=== PATIENT | female | born 1990 | race Hispanic/Latino ===

== ENCOUNTER 2018-08-28 19:21 | Emergency (ER) | payer OTHER ==
[~2018-08-28 19:21] MED LIST: ALPR1TAB7 PO; AZAT50TA PO; HYDR-4453 PO; LEVO25TA9 PO; LIDOP TP; MOXIOS OU; ZOLP10TA2 PO
[2018-08-28 20:17] LABS: BASOPHILS % (AUTO) 0.5 % (0.0-5.0); EOSINOPHILS % (AUTO) 2.2 % (0.0-8.0); LYMPHOCYTES % (AUTO) 49.5 % (21.0-51.0); MEAN CORPUSCULAR HEMOGLOBIN 31.3 pg (27.0-33.0); MEAN CORPUSCULAR HGB CONC 34.2 g/dL (32.0-36.0); MEAN CORPUSCULAR VOLUME 91.4 fL (79-99); MONOCYTES % (AUTO) 8.9 % (3.0-13.0); NEUTROPHILS % (AUTO) 38.9 % (40.0-77.0); PLATELET COUNT (AUTO) 357 K/uL (130-400); RED CELL DISTRIBUTION WIDTH 13.2 % (11.0-15.5); WHITE BLOOD COUNT (AUTO) 5.4 K/uL (4.8-10.8)
[2018-08-28 20:53] LABS: CREATININE 0.6 mg/dL (0.5-1.5); POTASSIUM 3.7 mmol/L (3.5-5.1)
[2018-08-28 21:01] LABS: ALBUMIN 3.2 g/dL (3.5-5.0); BILIRUBIN,TOTAL 0.1 mg/dL (0.2-1.0); CRP QUANTITATIVE 31.3 mg/L (0.00-9.0)
[2018-08-28 21:05] LABS: APPEARANCE,URINE Cloudy (CLEAR); BILIRUBIN,URINE Negative (NEGATIVE); COLOR,URINE Yellow (YELLOW); GLUCOSE, URINE (UA) Negative (NEGATIVE); KETONES,URINE Negative (NEGATIVE); LEUKOCYTE ESTERASE ,URINE Negative (NEGATIVE); NITRATE,URINE Negative (NEGATIVE); OCCULT BLOOD,URINE Negative (NEGATIVE); PROTEIN,URINE Negative (NEGATIVE)
[2018-08-28] MEDS ORDERED: ONDANSETRON HCL 4 MG/2 ML VIAL ONE (21:05)
[2018-08-28 21:10] LABS: HCG,QUAL RESULT NEGATIVE (NEGATIVE)
[2018-08-28 21:12] LABS: BACTERIA,URINE Few /HPF (None Seen); RBC,URINE 0-1 /HPF (0-1); SQUAMOUS EPITHELIAL CELL,UR Moderate /HPF (0-2); WBC,URINE 0-1 /HPF (0-1)
[2018-08-28 21:13] LABS: AMORPHOUS SEDIMENT,UR Few /LPF (None Seen)
[2018-08-28 21:25] LABS: ERYTHROCYTE SEDIMENTATION RATE 45 MM/HR (0-20)
[2018-08-28 21:26] LABS: AMPHET/METH SCREEN,URINE NEGATIVE (NEGATIVE); BARBITURATE SCREEN, URINE NEGATIVE (NEGATIVE); BENZODIAZEPINES SCREEN,URINE POSITIVE (NEGATIVE); CANNABINOID SCREEN,URINE NEGATIVE (NEGATIVE); COCAINE SCREEN,URINE NEGATIVE (NEGATIVE); OPIATE SCREEN,URINE NEGATIVE (NEGATIVE); PHENCYCLIDINE SCREEN,URINE NEGATIVE (NEGATIVE)
[2018-08-28] MEDS ORDERED: TRAMADOL HCL 50 MG TABLET ONE (22:05)
== END 2018-08-28 22:25 | disposition home or self-care (01) ==
LOC: EDH 19:21
DX: M87.851 Other osteonecrosis, right femur (principal); R11.2 Nausea with vomiting, unspecified; K50.90 Crohn's disease, unspecified, without complications; Z88.0 Allergy status to penicillin; Z88.1 Allergy status to other antibiotic agents; Z91.040 Latex allergy status; Z88.8 Allergy status to other drugs, medicaments and biological substances; Z98.890 Other specified postprocedural states
CPT/HCPCS: 36415; 72192; 80053; 80305; 81001; 81025; 82550; 84484; 84702; 85025; 85651; 86140; 93005; 96374; 96376; 99285; J2405

== ENCOUNTER 2020-07-05 14:04 | Emergency (ER) | payer MEDICAID, OTHER ==
[2020-07-05] MEDS ORDERED: SODIUM CHLORIDE 0.9% 1000ML 1,000 ML IV ONE (14:05)
[2020-07-05] MEDS ORDERED: MORPHINE SULFATE 4 MG/1ML SYG ONE (14:49)
[2020-07-05] MEDS ORDERED: ONDANSETRON HCL 4 MG/2 ML VIAL ONE (14:49)
[2020-07-05] MEDS ORDERED: DiphenhydrAMINE HCL 50 MG/ML VIAL ONE (14:54)
[2020-07-05 15:06] LABS: BASOPHILS % (AUTO) 0.1 % (0.0-5.0); EOSINOPHILS % (AUTO) 0.3 % (0.0-8.0); HEMATOCRIT 38.3 % (36-48); MEAN CORPUSCULAR HEMOGLOBIN 31.2 pg (27.0-33.0); MEAN CORPUSCULAR HGB CONC 33.9 g/dL (32.0-36.0); MEAN CORPUSCULAR VOLUME 91.8 fL (79-99); MONOCYTES % (AUTO) 8.7 % (3.0-13.0); NEUTROPHILS % (AUTO) 64.6 % (40.0-77.0); PLATELET COUNT (AUTO) 427 K/uL (130-400); RED BLOOD CELL COUNT(AUTO) 4.17 MIL/uL (4.00-5.50); WHITE BLOOD COUNT (AUTO) 7.5 K/uL (4.8-10.8)
[2020-07-05 15:19] LABS: INR 0.92 (0.85-1.15); PARTIAL THROMBOPLASTIN TIME 26.3 SEC (26.3-35.5)
[2020-07-05 15:29] LABS: CREATININE 0.7 mg/dL (0.5-1.5); POTASSIUM 3.3 mmol/L (3.5-5.1)
[2020-07-05 15:34] LABS: ALBUMIN 4.3 g/dL (3.5-5.0); BILIRUBIN,TOTAL 0.5 mg/dL (0.2-1.0); CRP QUANTITATIVE 2.6 mg/L (0.00-9.0); TOTAL PROTEIN, SERUM 8.4 g/dL (6.0-8.3)
[2020-07-05] MEDS ORDERED: FENTANYL 25 MCG/HR PATCH TD ONE (15:50)
[2020-07-05 16:19] LABS: ERYTHROCYTE SEDIMENTATION RATE 16 MM/HR (0-20)
== END 2020-07-05 16:01 | disposition home or self-care (01) ==
LOC: EDH 14:04
DX: G89.29 Other chronic pain (principal); M25.552 Pain in left hip; M25.551 Pain in right hip; Z20.828 Contact with and (suspected) exposure to other viral communicable diseases; Z72.0 Tobacco use; Z88.0 Allergy status to penicillin; Z88.5 Allergy status to narcotic agent; Z91.041 Radiographic dye allergy status; Z88.1 Allergy status to other antibiotic agents; Z88.8 Allergy status to other drugs, medicaments and biological substances; Z88.6 Allergy status to analgesic agent
CPT/HCPCS: 36415; 80053; 83605; 84484; 84702; 85025; 85610; 85651; 85730; 86140; 87040 ×2; 87426; 93005; 96374; 96375; 99284; J1200; J2270; J2405; J7030

== ENCOUNTER → 2021-03-12 | Outpatient (CLI) | payer MEDICAID | END | disposition home or self-care (01) | LOC: OIH 13:22 | PROVIDERS: ATTEND Internal Medicine | DX: M25.78 Osteophyte, vertebrae (principal); M25.551 Pain in right hip; M87.051 Idiopathic aseptic necrosis of right femur; M54.16 Radiculopathy, lumbar region; M54.2 Cervicalgia | CPT/HCPCS: 72040; 72110; 73502 ==

== ENCOUNTER 2022-07-13 02:23 | Emergency (ER) | payer MEDICAID ==
[~2022-07-13] VITALS: Ht 160 cm; Wt 61.2 kg
[2022-07-13 02:24] VITALS: BP 114/57
== END 2022-07-13 04:35 | disposition left against medical advice (07) ==
LOC: EDH 02:23
DX: M25.551 Pain in right hip (principal); R11.0 Nausea; M32.9 Systemic lupus erythematosus, unspecified; F41.9 Anxiety disorder, unspecified; F17.200 Nicotine dependence, unspecified, uncomplicated; Z88.0 Allergy status to penicillin; Z88.1 Allergy status to other antibiotic agents; Z88.6 Allergy status to analgesic agent
CPT/HCPCS: 99281

== ENCOUNTER 2022-11-06 13:16 | Emergency (ER) | payer MEDICAID ==
[~2022-11-06] VITALS: Ht 157.5 cm; Wt 61.2 kg
[2022-11-06 14:34] LABS: BASOPHILS % (AUTO) 0.3 % (0.0-5.0); LYMPHOCYTES % (AUTO) 27.8 % (21.0-51.0); MEAN CORPUSCULAR HEMOGLOBIN 30.2 pg (27.0-33.0); MEAN CORPUSCULAR HGB CONC 33.5 g/dL (32.0-36.0); MEAN CORPUSCULAR VOLUME 90.2 fL (79-99); MONOCYTES % (AUTO) 9.4 % (3.0-13.0); NEUTROPHILS % (AUTO) 58.9 % (40.0-77.0); PLATELET COUNT (AUTO) 416 K/uL (130-400); RED BLOOD CELL COUNT(AUTO) 3.77 MIL/uL (4.00-5.50); RED CELL DISTRIBUTION WIDTH 13.7 % (11.0-15.5); WHITE BLOOD COUNT (AUTO) 10.9 K/uL (4.8-10.8)
[2022-11-06 14:49] LABS: ALBUMIN 3.7 g/dL (3.5-5.0); CREATININE 0.8 mg/dL (0.5-1.5); TOTAL PROTEIN, SERUM 7.7 g/dL (6.0-8.3)
[2022-11-06 15:11] LABS: POTASSIUM 2.7 mmol/L (3.5-5.1)
[2022-11-06] MEDS ORDERED: MORPHINE 8MG VIAL IVP ONE (17:00)
[2022-11-06] MEDS ORDERED: 0.9%NACL 1000ML 1,000 ML IV ONE (17:00)
[2022-11-06] MEDS ORDERED: PROMETHAZINE HCL 25 MG/ML 1ML AMPULE IM ONE (17:00)
[2022-11-06 17:03] LABS: APPEARANCE,URINE CLEAR (CLEAR); BILIRUBIN,URINE NEGATIVE (NEGATIVE); COLOR,URINE YELLOW (YELLOW); GLUCOSE, URINE (UA) NEGATIVE (NEGATIVE); KETONES,URINE NEGATIVE (NEGATIVE); LEUKOCYTE ESTERASE ,URINE NEGATIVE Leu/uL (NEGATIVE); NITRATE,URINE NEGATIVE (NEGATIVE); OCCULT BLOOD,URINE NEGATIVE (NEGATIVE); PH,URINE 7.5 (5.0-8.0); PROTEIN,URINE NEGATIVE (NEGATIVE); UROBILINOGEN,URINE 0.2 mg/dL (0.2-1.0)
[2022-11-06] MEDS: MORPHINE 4 MG SYG ONE ×2 (17:03→17:10)
[2022-11-06] MEDS ORDERED: POTASSIUM BICARB/CIT AC 25 MEQ TABLET.EFF PO ONE (18:30)
[2022-11-06] MEDS ORDERED: HYDROMORPHONE 1 MG INJ IVP ONE (18:30)
[2022-11-06] MEDS ORDERED: PROM25TA7 PO (18:43)
[2022-11-06] MEDS ORDERED: PROM25SU58 RC (18:43)
[2022-11-06 19:00] VITALS: BP 142/88
== END 2022-11-06 19:01 | disposition home or self-care (01) ==
LOC: EDH 13:16
DX: S09.90XD Unspecified injury of head, subsequent encounter (principal); E86.9 Volume depletion, unspecified; E87.6 Hypokalemia; R11.2 Nausea with vomiting, unspecified; G89.29 Other chronic pain; F41.9 Anxiety disorder, unspecified; F17.200 Nicotine dependence, unspecified, uncomplicated; Z20.822 Contact with and (suspected) exposure to COVID-19; Z88.0 Allergy status to penicillin; Z88.1 Allergy status to other antibiotic agents; Z88.6 Allergy status to analgesic agent; Z79.899 Other long term (current) drug therapy; Z98.890 Other specified postprocedural states; Z91.040 Latex allergy status; W19.XXXA Unspecified fall, initial encounter; Y93.89 Activity, other specified; Y92.89 Other specified places as the place of occurrence of the external cause; Y99.8 Other external cause status
CPT/HCPCS: 99285; 96374; 70450; 87635; 96361; 96375; 80053; 85025; 87804 ×2; 81003; 81025; 36415; 96372; C9803; J2270 ×2; J1170; J7030; J2550

== ENCOUNTER 2022-11-18 17:52 | Emergency (ER) | payer MEDICAID ==
[~2022-11-18] VITALS: Ht 157.5 cm; Wt 61.2 kg
[~2022-11-18 17:52] MED LIST changes: +PROM25SU58 RC; +PROM25TA7 PO
[2022-11-18] MEDS ORDERED: ACETAMINOPHEN 500 MG TABLET PO ONE (19:30)
[2022-11-18] MEDS ORDERED: ONDANSETRON 4MG INJ ONE (19:41)
[2022-11-18 19:48] LABS: BASOPHILS % (AUTO) 0.6 % (0.0-5.0); EOSINOPHILS % (AUTO) 1.6 % (0.0-8.0); HEMATOCRIT 40.7 % (36-48); LYMPHOCYTES % (AUTO) 41.1 % (21.0-51.0); MEAN CORPUSCULAR HEMOGLOBIN 30.7 pg (27.0-33.0); MEAN CORPUSCULAR HGB CONC 33.4 g/dL (32.0-36.0); MEAN CORPUSCULAR VOLUME 91.9 fL (79-99); MONOCYTES % (AUTO) 13.8 % (3.0-13.0); NEUTROPHILS % (AUTO) 42.5 % (40.0-77.0); PLATELET COUNT (AUTO) 523 K/uL (130-400); RED BLOOD CELL COUNT(AUTO) 4.43 MIL/uL (4.00-5.50)
[2022-11-18 19:49] LABS: APPEARANCE,URINE CLOUDY (CLEAR); BILIRUBIN,URINE NEGATIVE (NEGATIVE); COLOR,URINE YELLOW (YELLOW); GLUCOSE, URINE (UA) NEGATIVE (NEGATIVE); KETONES,URINE 5 mg/dL (NEGATIVE); LEUKOCYTE ESTERASE ,URINE NEGATIVE Leu/uL (NEGATIVE); NITRATE,URINE NEGATIVE (NEGATIVE); OCCULT BLOOD,URINE SMALL (NEGATIVE); PROTEIN,URINE 30 mg/dL (NEGATIVE); UROBILINOGEN,URINE 0.2 mg/dL (0.2-1.0)
[2022-11-18 19:52] LABS: HCG,QUALITATIVE URINE NEGATIVE (NEGATIVE)
[2022-11-18 20:00] LABS: BACTERIA,URINE RARE /HPF (None Seen); MUCUS,URINE RARE LPF (None Seen); SQUAMOUS EPITHELIAL CELL,UR FEW /HPF (0-2)
[2022-11-18 20:08] LABS: CREATININE 0.8 mg/dL (0.5-1.5); POTASSIUM 3.5 mmol/L (3.5-5.1)
[2022-11-18 20:12] LABS: TOTAL PROTEIN, SERUM 8.8 g/dL (6.0-8.3)
[2022-11-18 22:21] VITALS: BP 118/60
[2022-11-18] MEDS ORDERED: HYDROCODONE/ACETAMINOPHEN 10/325 MG TAB PO ONE (22:30)
== END 2022-11-18 22:28 | disposition home or self-care (01) ==
LOC: EDH 17:52
DX: S09.90XA Unspecified injury of head, initial encounter (principal); R10.9 Unspecified abdominal pain; R74.8 Abnormal levels of other serum enzymes; F41.9 Anxiety disorder, unspecified; M19.90 Unspecified osteoarthritis, unspecified site; F17.200 Nicotine dependence, unspecified, uncomplicated; Z88.8 Allergy status to other drugs, medicaments and biological substances; Z88.6 Allergy status to analgesic agent; Z88.1 Allergy status to other antibiotic agents; Z88.0 Allergy status to penicillin; Z79.899 Other long term (current) drug therapy; W18.30XA Fall on same level, unspecified, initial encounter; Y93.89 Activity, other specified; Y92.89 Other specified places as the place of occurrence of the external cause; Y99.8 Other external cause status
CPT/HCPCS: 99284; 70450; 96365; 80053; 85025; 81001; 81025; 36415; 72125; 74176; J2405

== ENCOUNTER 2025-02-10 00:40 | Emergency (ER) | payer MEDICAID ==
[~2025-02-10] VITALS: Ht 160 cm; Wt 50.8 kg
[~2025-02-10 00:40] MED LIST changes: +ZOLP-685 PO; -ZOLP10TA2 PO
--- NOTE | 2025-02-10 00:44 | NUR ---
MARI PCT AWARE OF NEED FOR EKG
--- NOTE | 2025-02-10 00:51 | EKG ---
[facility] Test Date: 2025-02-10 Test Time: 00:48:28 Pat Name: ALHAJI RIVERO Department: [facility] Room: Gender: F Monitoring Specialist: [id number] : 1990 Requested By: EUSEBIA TEJADA Order Number: [id number] Reading MD: Alix Dahl Measurements Intervals Mallie Rate: 78 P: 28 MN: 144 QRS: 64 QRSD: 92 T: 21 QT: 373 QTc: 426 Interpretive Statements Sinus rhythm Compared to ECG 07/05/2020 14:11:58 Sinus tachycardia no longer present Electronically Signed On 02-11-2025 12:37:27 CDT by Alix Dahl Please click the below link to view image of tracing.
--- NOTE | 2025-02-10 00:52 | NUR ---
WILL NOT FIT IN TEXT PORTION OF TRIAGE DUE TO SPACE. PMH ULCERATIVE COLITIS
--- NOTE | 2025-02-10 01:18 | ERN ---
ED Note History of Present Illness Stated Complaint: CHEST PAIN Chief Complaint: Chest Pain Time Seen by : 00:44 Time Seen by Midlevel: 00:44 Dictation: The patient is a 34-year-old female with history of arthritis, anxiety, ulcerative colitis who presents to the emergency department with complaints of chest pain onset October of 2024. Patient reports it develop chest pain after she was diagnosed with COVID. Reports occasional palpitations. Patient reports she was seen in Dr. Uribe's office yesterday and had an EKG performed and was told the symptoms were due to her history of COVID. Allergies: Coded Allergies: enoxaparin (Unverified Allergy, Severe, UNKNOWN, 05/19/15) PT STATES THAT WITH LOVENOX . SHE STARTS TO VOMIT BLOOD AND IS A FAMILY OF THE NSAIDS . SHE HAS TAKEN THIS MEDICATION SO SHE IS ALLERGY , TO THIS MEDICATION . NONE GIVEN TO HER TODAY CREDIT vancomycin (Unverified Allergy, Severe, ITCHING, 06/05/15) BURING ITCHING AND MILD RASH , LOWER AREA OF ABD ,BACK AND ARMS NSAIDS (Non-Steroidal Anti-Inflamma (Verified Allergy, Unknown, 05/13/15) Penicillins (Verified Allergy, Unknown, 05/13/15) amoxicillin (Verified Allergy, Unknown, 05/13/15) ketorolac (Unverified Allergy, Unknown, 01/17/22) latex (Verified Allergy, Unknown, 05/13/15) Home Meds Active Scripts Promethazine HCl (Promethazine HCl) 25 Mg Tablet, 25 MG PO TIDP PRN for NAUSEA/VOMITING, #12 TAB 0 Refills Prov:NICK DOUGLAS MD 11/06/22 Promethazine HCl (Promethazine HCl) 25 Mg Supp.rect, 25 MG RC TIDP PRN for NAUSEA/VOMITING, #12 EA 0 Refills Prov:NICK DOUGLAS MD 11/06/22 Reported Medications Alprazolam (Alprazolam) 1 Mg Tablet, 1 MG PO [id number] PRN for ANXIETY, TAB 06/10/17 Moxifloxacin HCl (Vigamox 0.5% Ophth Soln) 20 Drop/Ml Opsol, 1 DROP OU DAILY PRN for OTHER [SEE ORDER COMMENTS], DROP 06/10/17 Zolpidem Tartrate (Ambien) 10 Mg Tablet, 10 MG PO HS, TAB 05/29/15 Lidocaine (Lidoderm Patch 5%) 1 Patch Patch, 1 PATCH TP DAILY PRN for PAIN, ADH.PATCH 05/13/15 Azathioprine (Azathioprine) 50 Mg Tablet, 50 MG PO BID, TAB 05/13/15 Levothyroxine Sodium (Synthroid 25 Mcg Tab) 25 Mcg Tablet, 25 MCG PO ACBKFST, TAB 05/13/15 Hydrocodone/Acetaminophen ([place] 10-325 Tablet) 1 Each Tablet, 1 EACH PO QID PRN for PAIN, TAB 05/13/15 Past Medical History Past Medical History: Anxiety, Arthritis, Hypothyroid Additional Past Medical Hx: ANKLOSING SPONDYLITIS, LUPUS, CROHNS, AVASCULAR NECROSIS, OSTEO MYELITIS, Surgical History: Other Surgical History Other: RT HIP, SEPTOPLASTY Social History: Smokers, Lives with family, Other RN Note Reviewed/Agreed w/PFSH: Yes Review of System Dictation Constitutional: Negative for fever,chills, and weight loss Eyes: Negative for injury, pain,redness, and discharge ENT: Negative for injury,pain or swelling Cardiovascular: Negative for and edema positive for chest pain, palpitation Respiratory: Negative for shortness of breath, cough, and wheezing, Abdomen/GI: Negative for abdominal pain, nausea, vomiting, diarrhea, and constipation Back: Negative for injury and pain : Negative for injury, bleeding and discharge MS/Extremity: Negative for injury and deformity Skin: Negative for rash, and discoloration Neuro: Negative for headache, weakness, numbness, tingling, and seizure Psych: Negative for suicide ideation, homicidal ideation, and hallucinations Initial Vital Sign VS Vital Signs Date Time Temp Pulse Resp B/P (MAP) Pulse Ox O2 Delivery O2 Flow Rate FiO2 02/10/25 00:42 97.9 97 16 95/64 100 Room Air 02/10/25 01:39 0 21 Physical Exam Dictation Vital Signs reviewed General Appearance: Alert, oriented x 3, no acute distress, well developed, nourished. Head and Face: non-traumatic. Eyes: PERRL, pink conjunctivas, eyelid no trauma, anterior chamber with arcus senilis. Ears: Pinnas intact and no signs of trauma or erythema ear canals clear and no discharge TM no erythema Nose: No discharge, no bleeding. Oropharynx: Mouth normal, tongue pink. pharynx clear,no erythema, tonsils no exudates, no abscesses noted, mucous membrane moist Neck: Supple, non-tender, no thyromegaly, no masses, no JVD, no bruits Breast:Deferred Chest:No tenderness, no crepitus, no paradoxical movement, no retractions Lungs:Clear, well-ventilated, symmetric, no rales, no wheezing, no rhonchi, no stridor, good breath sounds bilaterally Heart: Regular rate, regular rhythm, no murmur, no gallops Vascular: no peripheral edema, Abdomen: Soft, positive bowel sounds, nondistended, no guarding, nontender, no rebound, no masses no hepatomegaly, no splenomegaly, no Márquez's sign, no hernias. Rectal: Deferred Genital: Deferred Neurological: Normal speech, motor function intact, sensory function intact Musculoskeletal: Neck nontender, full range of motion, back nontender, full ra nge of motion, Extremities: nontender, full range of motion Skin: Color pink, dry, no turgor, no rash, no lacerations, no abrasions, no contusions. Lymphatic: Deferred Results (Laboratory/Radiology) Laboratory/Radiology Laboratory Tests Test 02/10/25 02:18 White Blood Count 8.6 K/uL (4.8-10.8) Red Blood Count 4.05 MIL/uL (4.00-5.50) Hemoglobin 12.6 g/dL (12.0-16.0) Hematocrit 37.6 % (36-48) Mean Corpuscular Volume 92.8 fL (79-99) Mean Corpuscular Hemoglobin 31.1 pg (27.0-33.0) Mean Corpuscular Hemoglobin Concent 33.5 g/dL (32.0-36.0) Red Cell Distribution Width 14.1 % (11.0-15.5) Platelet Count 362 K/uL (130-400) Mean Platelet Volume 9.8 fL (7.5-10.5) Immature Granulocyte % (Auto) 0.3 % (0-1) Neutrophils (%) (Auto) 65.6 % (40.0-77.0) Lymphocytes (%) (Auto) 24.6 % (21.0-51.0) Monocytes (%) (Auto) 8.8 % (3.0-13.0) Eosinophils (%) (Auto) 0.5 % (0.0-8.0) Basophils (%) (Auto) 0.2 % (0.0-5.0) Neutrophils # (Auto) 5.6 K/uL (1.8-7.7) Lymphocytes # (Auto) 2.1 K/uL (1.0-4.8) Monocytes # (Auto) 0.8 K/uL (0.1-1.0) Eosinophils # (Auto) 0.04 K/uL (0.00-0.70) Basophils # (Auto) 0.02 K/uL (0.00-0.20) Absolute Immature Granulocyte (auto 0.03 K/uL (0-1) Nucleated Red Blood Cells 0.0 % (0.0-0.19) Sodium Level 141 mmol/L (136-145) Potassium Level 3.8 mmol/L (3.5-5.1) Chloride Level 104 mmol/L (101-111) Carbon Dioxide Level 24 mmol/L (21-32) Blood Urea Nitrogen 20 mg/dL (7-18) H Creatinine 0.8 mg/dL (0.5-1.0) Glomerular Filtration Rate Calc 100 mL/min (>90) Random Glucose 71 mg/dL (70-105) Total Calcium 9.7 mg/dL (8.5-10.1) Magnesium Level 1.80 mg/dL (1.80-2.40) Total Creatine Kinase 50 U/L (21-232) # Troponin I High Sensitivity < 4 ng/L (4-50) L B-Type Natriuretic Peptide < 5 pg/mL (0-100) Lipase 11 U/L (16-77) L Labs Reviewed?: Yes EKG: (+) rhythm (Sinus rhythm) EKG Comment: Date:02/10/2025 Time:47 Ventricular rate:78 VT interval:144 QRS duration:92 QT/QTc:373 EKG interpretation: Sinus rhythm Reviewed by ED Attending STEMI ED Course ED Course Orders Procedure Category Date Status Time Vital Signs Per CPOE 02/10/25 Transmitted Routine 00:43 B-Type Natriuretic LAB 02/10/25 Complete Peptide 00:43 Chest 1vw RAD 02/10/25 Taken 00:43 12 Lead Ekg Tracing- EKG 02/10/25 Complete Technical 00:43 Oxygen By Nc/Pulse Ox CPOE 02/10/25 Transmitted 00:43 Maintain Iv CPOE 02/10/25 Transmitted 00:43 Iv Insertion CPOE 02/10/25 Transmitted 00:43 Cardiac Monitoring CPOE 02/10/25 Transmitted 00:43 Pulse Oximetry With CPOE 02/10/25 Transmitted Vs And Prn 00:43 Cbc With Differential LAB 02/10/25 Complete 00:43 Activity: Br W/Brp CPOE 02/10/25 Transmitted With Assist 00:43 Creatine Kinase, Total LAB 02/10/25 Complete 00:43 Troponin I High LAB 02/10/25 Complete Sensitivity 00:43 Urinalysis Profile LAB 02/10/25 Logged 00:43 Basic Metabolic Panel LAB 02/10/25 Complete 00:43 Testing, LAB 02/10/25 Logged Serum Hcg 00:45 Ondansetron 4mg Inj PHA 02/10/25 Complete (Zofran 4mg Inj) 01:30 Pantoprazole 40mg Inj PHA 02/10/25 Complete (Protonix 40mg Inj 01:30 Acetaminophen 500mg PHA 02/10/25 Complete Tab (Tylenol 500mg T 01:30 Drug Screen Urine LAB 02/10/25 Logged 01:05 Lipase LAB 02/10/25 Complete 00:43 Magnesium LAB 02/10/25 Complete 00:43 Metoclopramide 10 Mg PHA 02/10/25 Complete Tablet (Reglan 10 M 02:30 Mag/Alum/Simeth 30ml PHA 02/10/25 Complete (Maalox Plus 30ml) 02:30 Current Medications Medications (Trade) Dose Ordered Sig/Sarah Route PRN Reason Start Time Stop Time Status Last Admin Dose Admin Acetaminophen (TYLenol 500MG TAB) 1,000 mg ONCE ONCE PO 02/10/25 01:30 02/10/25 02:28 DC Al Hydroxide/Mg Hydroxide (MAALox PLUS 30ML) 30 ml ONCE ONCE PO 02/10/25 02:30 02/10/25 02:31 DC Metoclopramide HCl (regLAN 10 MG TAB) 10 mg ONCE ONCE PO 02/10/25 02:30 02/10/25 02:31 DC Ondansetron HCl (zoFRAN 4MG INJ) 4 mg ONCE ONCE IVP 02/10/25 01:30 02/10/25 02:28 DC Pantoprazole Sodium (PROTonix 40MG INJ) 40 mg ONCE ONCE IVP 02/10/25 01:30 02/10/25 02:28 DC Vital Signs Date Time Temp Pulse Resp B/P (MAP) Pulse Ox O2 Delivery O2 Flow Rate FiO2 02/10/25 03:42 83 17 100/68 98 Room Air* 0 21 02/10/25 01:39 98.1 80 16 104/70 100 Room Air* 0 21 02/10/25 00:42 97.9 97 16 95/64 100 Room Air HEART Score Response (Comments) Value History: Low suspicion (0) 0 EKG: Normal 0 Age: < 45yrs (0) 0 Risk Factors: 1-2 risk factors (+1) 1 Initial Troponin: Normal limit (0) 0 Total 1 Medical Decision Making MDM The patient is a 34-year-old female with history of arthritis, anxiety, ulcerative colitis who presents to the emergency department with complaints of chest pain onset October of 2024. Patient reports it develop chest pain after she was diagnosed with COVID. Reports occasional palpitations. Patient reports she was seen in Dr. Uribe's office yesterday and had an EKG performed and was told the symptoms were due to her history of COVID. CBC showed no leukocytosis, no anemia, chemistry showed no electrolyte imbalance, negative troponin, EKG shows sinus rhythm. Patient with chest pain since October of 2024. Patient requesting Dilaudid. Patient in no acute distress. No risk for any cardiac etiology. Patient will be discharged to follow up PCP. Differential diagnosis: ACS, pneumonia, tachyarrhythmia, electrolyte imbalance, dehydration Need for hospitalization: Patient does not meet criteria for hospitalization. There are no social concerns with this patient. The patient's laboratory values with her. Explaining that they are normal that she has no problems with her heart that we can see her EKGs normal ruling out pericarditis her BNP is normal ruling out CHF her troponins are negative ruling out ischemia. I explained to her that I do not doubt she has chest pain, I just can not fix it now beyond providing symptomatic relief with the pain medications which would be Tylenol or ibuprofen. I tried to make it clear that our job in the emergency room if simply to rule out causes that in danger of patient's life and that her chest pain while real is not coming from her heart in his not life-threatening. It is possible that her chest pain could be from anxiety or hyperventilation syndrome or plain old dehydration. Unfortunately we have not been able to obtain an IV in the patient despite using the vein find her and therefore have not been able to fix any potential hypovolemia. The patient left the hospital discussed it with me. DX & DISP Disposition: Discharge Departure Impression: Primary Impression: Volume depletion Condition: Stable Referrals: SHAUNA KEATING MD (PCP) FATIMAH COFFMAN Feb 10, 2025 01:18 EUSEBIA TEJADA MD Feb 10, 2025 03:47
[2025-02-10] MEDS ORDERED: PANTOPrazole 40 MG/VIAL IVP ONE (01:30)
[2025-02-10] MEDS ORDERED: ondanSETRON 4MG INJ IVP ONE (01:30)
[2025-02-10] MEDS ORDERED: acetaMINOPHEN 500 MG TABLET PO ONE (01:30)
[2025-02-10 01:39] VITALS: TEMP 98
[2025-02-10 02:28] LABS: BASOPHILS # (AUTO) 0.02 K/uL (0.00-0.20); BASOPHILS % (AUTO) 0.2 % (0.0-5.0); EOSINOPHILS # (AUTO) 0.04 K/uL (0.00-0.70); EOSINOPHILS % (AUTO) 0.5 % (0.0-8.0); HEMATOCRIT 37.6 % (36-48); IMMATURE GRANULOCYTE ABSOLUTE 0.03 K/uL (0-1); LYMPHOCYTES # (AUTO) 2.1 K/uL (1.0-4.8); LYMPHOCYTES % (AUTO) 24.6 % (21.0-51.0); MEAN CORPUSCULAR HEMOGLOBIN 31.1 pg (27.0-33.0); MEAN CORPUSCULAR HGB CONC 33.5 g/dL (32.0-36.0); MEAN CORPUSCULAR VOLUME 92.8 fL (79-99); MONOCYTES # (AUTO) 0.8 K/uL (0.1-1.0); MONOCYTES % (AUTO) 8.8 % (3.0-13.0); NEUTROPHILS # (AUTO) 5.6 K/uL (1.8-7.7); NEUTROPHILS % (AUTO) 65.6 % (40.0-77.0); PLATELET COUNT (AUTO) 362 K/uL (130-400); RED BLOOD CELL COUNT(AUTO) 4.05 MIL/uL (4.00-5.50); RED CELL DISTRIBUTION WIDTH 14.1 % (11.0-15.5); WHITE BLOOD COUNT (AUTO) 8.6 K/uL (4.8-10.8)
[2025-02-10 02:37] LABS: CREATININE 0.8 mg/dL (0.5-1.0); POTASSIUM 3.8 mmol/L (3.5-5.1)
[2025-02-10 02:45] LABS: MAGNESIUM 1.8 mg/dL (1.80-2.40)
[2025-02-10 02:54] LABS: B-TYPE NATRIURETIC PEPTIDE < 5 pg/mL (0-100)
[2025-02-10] MEDS: MAG/ALUM/SIMETH 30 ML UDCUP PO ONE (03:41)
[2025-02-10] MEDS: metoCLOPRAmide 10 MG TABLET PO ONE (03:41)
[2025-02-10 03:42] VITALS: BP 100/68; PULSE 83; RESP 17; O2SAT 98
--- NOTE | 2025-02-10 08:22 | HMCIMG ---
Exam Type: CHEST 1VW Clinical Information: CHEST PAIN Comparison: None Findings: The lungs are clear of infiltrates. The heart is normal in size. The bony and soft tissue structures of the chest are unremarkable. Impression: Clear lungs.
== END 2025-02-10 03:53 | disposition home or self-care (01) ==
LOC: EDH 00:40
DX: E86.9 Volume depletion, unspecified (principal); E03.9 Hypothyroidism, unspecified; F17.200 Nicotine dependence, unspecified, uncomplicated; F41.9 Anxiety disorder, unspecified; M19.90 Unspecified osteoarthritis, unspecified site; Z79.624 Long term (current) use of inhibitors of nucleotide synthesis; Z79.631 Long term (current) use of antimetabolite agent; Z88.1 Allergy status to other antibiotic agents; Z88.6 Allergy status to analgesic agent; Z88.0 Allergy status to penicillin
CPT/HCPCS: 36415; 71045; 80048; 82550; 83690; 83735; 83880; 84484; 85025; 93005; 99285

== ENCOUNTER 2025-07-18 22:21 | Emergency (ER) | payer MEDICAID ==
[~2025-07-18] VITALS: Ht 157.5 cm; Wt 63.0 kg
--- NOTE | 2025-07-18 22:37 | ERN ---
ED Note History of Present Illness Stated Complaint: C/O HIP PAIN Chief Complaint: Hip Pain/Injury Time Seen by MD: 22:24 Dictation: PATIENT IS A 35-YEAR-OLD FEMALE COMING IN AND STILL COMPLAINING OF ACUTE EXACERBATION OF CHRONIC HIP PAIN SHE HAS HAD FOR A LONG TIME. SHE STATES SHE HAS A HISTORY OF AVASCULAR NECROSIS IN HIS SEEING A DR. TORRES OUT OF [facility]. SURGERY WITH HER IN THE PAST. HE SEES HERE HER PRIMARY CARE DOCTOR HAS DR HAINES/VAT SKIMMER. RIGHT STATE SHE HAD SEEN HER PRIMARY CARE DOCTOR TWO WEEKS AGO WHO GAVE HER FENTANYL 50 ELYSSA PATCHES. HE GAVE HER FIVE PATCHES. SHE STATES SHE HAD ONE ON TWO DAYS AGO AND IT WASHED OFF IN THE SHOWER, SHE DID NOT CALL HER PRIMARY CARE DOCTOR FOR REFILL. I ADVISED HER I COULD GIVE HER SOMETHING TONIGHT FOR PAIN UNTIL SHE SEES IN THE MORNING. SHE REQUESTED DILAUDID AND PHENERGAN. BUYS HER I WOULD NOT BE GIVEN EITHER ONE OF THOSE DRUGS I WOULD GIVE HER A SHOT OF MORPHINE, WITH SOME ZOFRAN AND COULD SHE COULD SEE HER DOCTOR TOMORROW. Allergies: Coded Allergies: enoxaparin (Unverified Allergy, Severe, UNKNOWN, 05/19/15) PT STATES THAT WITH LOVENOX . SHE STARTS TO VOMIT BLOOD AND IS A FAMILY OF THE NSAIDS . SHE HAS TAKEN THIS MEDICATION SO SHE IS ALLERGY , TO THIS MEDICATION . NONE GIVEN TO HER TODAY CREDIT vancomycin (Unverified Allergy, Severe, ITCHING, 06/05/15) BURING ITCHING AND MILD RASH , LOWER AREA OF ABD ,BACK AND ARMS NSAIDS (Non-Steroidal Anti-Inflamma (Verified Allergy, Unknown, 05/13/15) Penicillins (Verified Allergy, Unknown, 05/13/15) amoxicillin (Verified Allergy, Unknown, 05/13/15) ketorolac (Unverified Allergy, Unknown, 01/17/22) latex (Verified Allergy, Unknown, 05/13/15) Home Meds Active Scripts Promethazine HCl (Promethazine HCl) 25 Mg Tablet, 25 MG PO TIDP PRN for NAUSEA/VOMITING, #12 TAB 0 Refills Prov:NICK DOUGLAS MD 11/06/22 Promethazine HCl (Promethazine HCl) 25 Mg Supp.rect, 25 MG RC TIDP PRN for NAUSEA/VOMITING, #12 EA 0 Refills Prov:NICK DOUGLAS MD 11/06/22 Reported Medications Alprazolam (Alprazolam) 1 Mg Tablet, 1 MG PO [id number] PRN for ANXIETY, TAB 06/10/17 Moxifloxacin HCl (Vigamox 0.5% Ophth Soln) 20 Drop/Ml Opsol, 1 DROP OU DAILY PRN for OTHER [SEE ORDER COMMENTS], DROP 06/10/17 Zolpidem Tartrate (Ambien) 10 Mg Tablet, 10 MG PO HS, TAB 05/29/15 Lidocaine (Lidoderm Patch 5%) 1 Patch Patch, 1 PATCH TP DAILY PRN for PAIN, ADH.PATCH 05/13/15 Azathioprine (Azathioprine) 50 Mg Tablet, 50 MG PO BID, TAB 05/13/15 Levothyroxine Sodium (Synthroid 25 Mcg Tab) 25 Mcg Tablet, 25 MCG PO ACBKFST, TAB 05/13/15 Hydrocodone/Acetaminophen ([place] 10-325 Tablet) 1 Each Tablet, 1 EACH PO QID PRN for PAIN, TAB 05/13/15 Past Medical History Past Medical History: Anxiety, Bipolar, Depression, Hypothyroid Additional Past Medical Hx: ANKLOSING SPONDYLITIS, LUPUS, CROHNS, AVASCULAR NECROSIS, OSTEO MYELITIS, Surgical History: Other, None Surgical History Other: HIP SURGERY Social History: Smokers, Lives with family, Other RN Note Reviewed/Agreed w/PFSH: Yes Review of System Dictation CONSTITUTIONAL: NEGATIVE EXCEPT FOR HPI HEAD/FACE: NEGATIVE EXCEPT FOR HPI EENT: NEGATIVE EXCEPT FOR HPI RESPIRATORY: NEGATIVE EXCEPT FOR HPI GASTROINTESTINAL/ABDOMINAL: NEGATIVE EXCEPT FOR HPI GENITOURINARY: NEGATIVE EXCEPT FOR HPI MUSCULOSKELETAL: NEGATIVE EXCEPT FOR HPI CHRONIC BILATERAL HIP PAIN INTEGUMENTARY: NEGATIVE EXCEPT FOR HPI NEUROLOGICAL/PSYCH: NEGATIVE EXCEPT FOR HPI HEMATOLOGIC/LYMPHATIC: NEGATIVE EXCEPT FOR HPI ALL SYSTEMS NEGATIVE, EXCEPT NOTED ABOVE. 13 POINT REVIEW OF SYSTEMS ASSESSED AND ALL NEGATIVE EXCEPT FOR ABOVE. Initial Vital Sign VS Vital Signs Date Time Temp Pulse Resp B/P (MAP) Pulse Ox O2 Delivery O2 Flow Rate FiO2 07/18/25 22:23 98.6 82 20 97/64 96 Room Air Physical Exam Dictation VITAL SIGNS REVIEWED GENERAL APPEARANCE: ALERT, ORIENTED X 3, MILD ACUTE PAIN. PATIENT APPEARS MILDLY DROWSY BUT IS ANSWERING QUESTIONS. HEAD AND FACE: NON-TRAUMATIC. EYES: PERRL, PINK CONJUNCTIVAS, EYELID NO TRAUMA, ANTERIOR CHAMBER WITH ARCUS SENILIS. EARS: PINNAS INTACT AND NO SIGNS OF TRAUMA OR ERYTHEMA EAR CANALS CLEAR AND NO DISCHARGE TM NO ERYTHEMA NOSE: NO DISCHARGE, NO BLEEDING. OROPHARYNX: MOUTH NORMAL, TONGUE PINK, PHARYNX CLEAR,NO ERYTHEMA, TONSILS NO EXUDATES, NO ABSCESSES NOTED, MUCOUS MEMBRANE MOIST NECK: SUPPLE, NON-TENDER, NO THYROMEGALY, NO MASSES, NO JVD, NO BRUITS BREAST:DEFERRED CHEST:NO TENDERNESS, NO CREPITUS, NO PARADOXICAL MOVEMENT, NO RETRACTIONS LUNGS:CLEAR, WELL-VENTILATED, SYMMETRIC, NO RALES, NO WHEEZING, NO RHONCHI, NO STRIDOR, GOOD BREATH SOUNDS BILATERALLY HEART: REGULAR RATE, REGULAR RHYTHM, NO MURMUR, NO GALLOPS VASCULAR: NO PERIPHERAL EDEMA, ABDOMEN: SOFT, POSITIVE BOWEL SOUNDS, NONDISTENDED, NO GUARDING, NONTENDER, NO REBOUND, NO MASSES NO HEPATOMEGALY, NO SPLENOMEGALY, NO SNWO'S SIGN, NO HERNIAS. RECTAL: DEFERRED GENITAL: DEFERRED NEUROLOGICAL: NORMAL SPEECH, MOTOR FUNCTION INTACT, SENSORY FUNCTION INTACT MUSCULOSKELETAL: NECK NONTENDER, FULL RANGE OF MOTION, BACK NONTENDER, FULL RANGE OF MOTION, EXTREMITIES: NONTENDER, FULL RANGE OF MOTION SKIN: COLOR PINK, DRY, NO TURGOR, NO RASH, NO LACERATIONS, NO ABRASIONS, NO CONTUSIONS. LYMPHATIC: DEFERRED Results (Laboratory/Radiology) Labs Reviewed?: Yes ED Course ED Course Orders Procedure Category Date Status Time Morphine 2mg Syg PHA 07/18/25 Logged (Morphine 2mg Syg) 22:30 Ondansetron Odt 4mg PHA 07/18/25 Logged Tab (Zofran 4mg Odt) 22:30 Vital Signs Date Time Temp Pulse Resp B/P (MAP) Pulse Ox O2 Delivery O2 Flow Rate FiO2 07/18/25 22:23 98.6 82 20 97/64 96 Room Air 2232/I ADVISED PATIENT I WOULD GIVE HER A SINGLE SHOT OF MORPHINE AND SOME ONDANSETRON HERE. SHE COULD FOLLOW UP WITH HER PRIMARY CARE DOCTOR IN THE MORNING FOR REFILL OF HER FENTANYL PATCH OR GO SEE HER VAT SKIMMER. Medical Decision Making MDM MEDICAL DECISION-MAKING BASED ON EMPIRIC TREATMENT FOR CHRONIC HIP PAIN. PATIENT IS HEMODYNAMICALLY STABLE NO FEVER NO CHILLS. SHE STATES SHE HAD HER LAST FENTANYL PATCH WASH OFF IN THE SHOWER TWO DAYS AGO. SHE DID NOT FOLLOW UP WITH HER PRIMARY CARE DOCTOR FOR REFILL NOR DID SHE SEE HER VAT SKIMMER. I ADVISED HER THAT I WOULD GIVE HER A SINGLE SHOT OF MORPHINE WITH SOME ZOFRAN SINCE SHE HAD A RIDE HOME. SHE COULD SEE DR. Keating DX & DISP Disposition: Discharge Departure Impression: Primary Impression: Chronic hip pain Additional Impression: Narcotic habituation, continuous Condition: Stable Additional Instructions: Follow-up with primary care provider in 1 to 2 days. Take medications as directed here in the emergency room. Okay to continue home medications unless otherwise discussed during your visit in the emergency room today. Return to your nearest emergency room if symptoms worsen or if there is no improvement. Call 911 if you need immediate assistance. Take Tylenol or Motrin [id number] as needed and if no contraindications are present. Increase oral hydration. A wound culture or urine culture was ordered here in the emergency room department please follow-up with primary care provider and advise them to get repeat ports from our facility. If you had any Pedro wrap/splints that were applied here, please do not remove them until you see your primary care or specialty. F follow up tomorrow with refill of your fentanyl patches or see your paint trimmer pipe bowls that he was referring you to Referrals: SHAUNA KEATING MD (PCP) Time of Disposition: 22:36 I have reviewed the case, and I agree with, Diagnosis and Plan MAGALY BRAVO NP Jul 18, 2025 22:37
[2025-07-18 22:49] VITALS: BP 103/63; PULSE 77; RESP 15; TEMP 98.6; O2SAT 100
== END 2025-07-18 23:17 | disposition home or self-care (01) ==
LOC: EDH 22:21
DX: G89.29 Other chronic pain (principal); M25.559 Pain in unspecified hip; E03.9 Hypothyroidism, unspecified; F17.200 Nicotine dependence, unspecified, uncomplicated; F31.9 Bipolar disorder, unspecified; F41.9 Anxiety disorder, unspecified; Z79.624 Long term (current) use of inhibitors of nucleotide synthesis; Z79.631 Long term (current) use of antimetabolite agent; Z88.0 Allergy status to penicillin; Z88.1 Allergy status to other antibiotic agents; Z88.6 Allergy status to analgesic agent; Z91.040 Latex allergy status
CPT/HCPCS: 99283; 96372; J2270

== ENCOUNTER → 2025-08-07 | Emergency (ER) | payer MEDICAID ==
[~2025-08-07] VITALS: Ht 160 cm; Wt 67.6 kg
[~2025-08-07] MED LIST changes: +ACET-2079 PO; +HYDROcodone/APAP 5/325 1 TAB TABLET PO ONE
[2025-08-07 20:46] VITALS: BP 105/68; PULSE 105; RESP 20; TEMP 98.8
--- NOTE | 2025-08-07 20:51 | ERN ---
ED Note History of Present Illness Stated Complaint: C/O PAIN TO RIGHT LEG AFTER FALL Chief Complaint: Mechanical Fall Time Seen by MD: 20:48 Dictation: PATIENT IS A 35-YEAR-OLD FEMALE HAD A SLIP FALL IN HER BATHROOM AT HOME LANDED ON HER BUTT. SHE IS COMPLAINING OF PAIN TO HER LOWER PELVIC REGION BILATERALLY. AND INTO HER GROIN. SEAT NO NAUSEA VOMITING NO BLOOD THINNERS. NOT TAKEN ANYTHING PRIOR TO ARRIVAL FOR PAIN. NO SHORTENING OR ROTATION OF EITHER EXTREMITY. Allergies: Coded Allergies: enoxaparin (Unverified Allergy, Severe, UNKNOWN, 05/19/15) PT STATES THAT WITH LOVENOX . SHE STARTS TO VOMIT BLOOD AND IS A FAMILY OF THE NSAIDS . SHE HAS TAKEN THIS MEDICATION SO SHE IS ALLERGY , TO THIS MEDICATION . NONE GIVEN TO HER TODAY CREDIT vancomycin (Unverified Allergy, Severe, ITCHING, 06/05/15) BURING ITCHING AND MILD RASH , LOWER AREA OF ABD ,BACK AND ARMS NSAIDS (Non-Steroidal Anti-Inflamma (Verified Allergy, Unknown, 05/13/15) Penicillins (Verified Allergy, Unknown, 05/13/15) amoxicillin (Verified Allergy, Unknown, 05/13/15) ketorolac (Unverified Allergy, Unknown, 01/17/22) latex (Verified Allergy, Unknown, 05/13/15) Home Meds Active Scripts Promethazine HCl (Promethazine HCl) 25 Mg Tablet, 25 MG PO TIDP PRN for NAUSEA/VOMITING, #12 TAB 0 Refills Prov:NICK DOUGLAS MD 11/06/22 Promethazine HCl (Promethazine HCl) 25 Mg Supp.rect, 25 MG RC TIDP PRN for NAUSEA/VOMITING, #12 EA 0 Refills Prov:NICK DOUGLAS MD 11/06/22 Reported Medications Alprazolam (Alprazolam) 1 Mg Tablet, 1 MG PO [id number] PRN for ANXIETY, TAB 06/10/17 Moxifloxacin HCl (Vigamox 0.5% Ophth Soln) 20 Drop/Ml Opsol, 1 DROP OU DAILY PRN for OTHER [SEE ORDER COMMENTS], DROP 06/10/17 Zolpidem Tartrate (Ambien) 10 Mg Tablet, 10 MG PO HS, TAB 05/29/15 Lidocaine (Lidoderm Patch 5%) 1 Patch Patch, 1 PATCH TP DAILY PRN for PAIN, ADH.PATCH 05/13/15 Azathioprine (Azathioprine) 50 Mg Tablet, 50 MG PO BID, TAB 05/13/15 Levothyroxine Sodium (Synthroid 25 Mcg Tab) 25 Mcg Tablet, 25 MCG PO ACBKFST, TAB 05/13/15 Hydrocodone/Acetaminophen ([place] 10-325 Tablet) 1 Each Tablet, 1 EACH PO QID PRN for PAIN, TAB 05/13/15 Past Medical History Past Medical History: Other Additional Past Medical Hx: ANKLOSING SPONDYLITIS, LUPUS, CROHNS, AVASCULAR NECROSIS, OSTEO MYELITIS, Surgical History: Other Surgical History Other: HIP SURGERY Social History: Smokers, Lives with family, Other RN Note Reviewed/Agreed w/PFSH: Yes Review of System Dictation CONSTITUTIONAL: NEGATIVE EXCEPT FOR HPI HEAD/FACE: NEGATIVE EXCEPT FOR HPI EENT: NEGATIVE EXCEPT FOR HPI RESPIRATORY: NEGATIVE EXCEPT FOR HPI GASTROINTESTINAL/ABDOMINAL: NEGATIVE EXCEPT FOR HPI GENITOURINARY: NEGATIVE EXCEPT FOR HPI MUSCULOSKELETAL: NEGATIVE EXCEPT FOR HPI PELVIC PAIN INTEGUMENTARY: NEGATIVE EXCEPT FOR HPI NEUROLOGICAL/PSYCH: NEGATIVE EXCEPT FOR HPI HEMATOLOGIC/LYMPHATIC: NEGATIVE EXCEPT FOR HPI ALL SYSTEMS NEGATIVE, EXCEPT NOTED ABOVE. 13 POINT REVIEW OF SYSTEMS ASSESSED AND ALL NEGATIVE EXCEPT FOR ABOVE. Initial Vital Sign VS Vital Signs Date Time Temp Pulse Resp B/P (MAP) Pulse Ox O2 Delivery O2 Flow Rate FiO2 08/07/25 20:46 98.8 105 20 105/68 100 Room Air Physical Exam Dictation VITAL SIGNS REVIEWED GENERAL APPEARANCE: ALERT, ORIENTED X 3, MODERATE ACUTE DISTRESS, WELL DEVELOPED, NOURISHED. HEAD AND FACE: NON-TRAUMATIC. EYES: PERRL, PINK CONJUNCTIVAS, EYELID NO TRAUMA, ANTERIOR CHAMBER WITH ARCUS SENILIS. EARS: PINNAS INTACT AND NO SIGNS OF TRAUMA OR ERYTHEMA EAR CANALS CLEAR AND NO DISCHARGE TM NO ERYTHEMA NOSE: NO DISCHARGE, NO BLEEDING. OROPHARYNX: MOUTH NORMAL, TONGUE PINK, PHARYNX CLEAR,NO ERYTHEMA, TONSILS NO EXUDATES, NO ABSCESSES NOTED, MUCOUS MEMBRANE MOIST NECK: SUPPLE, NON-TENDER, NO THYROMEGALY, NO MASSES, NO JVD, NO BRUITS BREAST:DEFERRED CHEST:NO TENDERNESS, NO CREPITUS, NO PARADOXICAL MOVEMENT, NO RETRACTIONS LUNGS:CLEAR, WELL-VENTILATED, SYMMETRIC, NO RALES, NO WHEEZING, NO RHONCHI, NO STRIDOR, GOOD BREATH SOUNDS BILATERALLY HEART: REGULAR RATE, REGULAR RHYTHM, NO MURMUR, NO GALLOPS VASCULAR: NO PERIPHERAL EDEMA, ABDOMEN: SOFT, POSITIVE BOWEL SOUNDS, NONDISTENDED, NO GUARDING, NONTENDER, NO REBOUND, NO MASSES NO HEPATOMEGALY, NO SPLENOMEGALY, NO SNOW'S SIGN, NO HERNIAS. RECTAL: DEFERRED GENITAL: DEFERRED NEUROLOGICAL: NORMAL SPEECH, MOTOR FUNCTION INTACT, SENSORY FUNCTION INTACT MUSCULOSKELETAL: NECK NONTENDER, FULL RANGE OF MOTION, PATIENT INDICATING PAIN TO LOWER PELVIC REGION MEDIALLY TO BOTH THIGHS. SHORT OR ROTATION OF EITHER LEG. VASCULAR CMS TECH EXTREMITIES: SKIN: COLOR PINK, DRY, NO TURGOR, NO RASH, NO LACERATIONS, NO ABRASIONS, NO C ONTUSIONS. LYMPHATIC: DEFERRED Results (Laboratory/Radiology) Laboratory/Radiology PELVIC X-RAY NEGATIVE Labs Reviewed?: Yes ED Course ED Course Orders Procedure Category Date Status Time Pelvis 1-2vws RAD 08/07/25 Taken 20:48 Hydrocodone/Apap PHA 08/07/25 Complete 5/325 ([place] 5/325mg) 21:00 Testing, LAB 08/07/25 Logged Serum Hcg 20:48 Current Medications Medications (Trade) Dose Ordered Sig/Sarah Route PRN Reason Start Time Stop Time Status Last Admin Dose Admin Acetaminophen/ Hydrocodone Bitart (NORco 5/325MG) 1 tab ONCE ONCE PO 08/07/25 21:00 08/07/25 21:01 DC Vital Signs Date Time Temp Pulse Resp B/P (MAP) Pulse Ox O2 Delivery O2 Flow Rate FiO2 08/07/25 20:46 98.8 105 20 105/68 100 Room Air 2150/PATIENT DISCHARGED HOME WITH PELVIC CONTUSION AND FALL. SHE WILL BE GIVEN TYLENOL NO. 3 AND TOLD TO SEE HER PRIMARY CARE DOCTOR Medical Decision Making MDM MEDICAL DISCHARGE MAKING BASED ON PELVIC X-RAY AND PAIN MANAGEMENT PELVIC X-RAY NEGATIVE PATIENT DISCHARGED HOME WITH TYLENOL NO. 3 AND PELVIC CONTUSION TOLD TO SEE HER DOCTOR DX & DISP Disposition: Discharge Departure Impression: Primary Impression: Pelvic contusion Additional Impression: Fall Condition: Stable Scripts Acetaminophen with Codeine (Acetaminophen-Cod #3 Tablet) 300 Mg-30 Mg Tablet 1 TAB PO Q4H PRN for MODERATE TO SEVERE PAIN, #10 TAB 0 Refills ONE TABLET BY MOUTH Q.6 HOURS P.R.N. PAIN Prov: MAGALY BRAVO VETERINARY TECHNICIAN INSTRUCTOR 08/07/25 Additional Instructions: Follow-up with primary care provider in 1 to 2 days. Take medications as directed here in the emergency room. Okay to continue home medications unless otherwise discussed during your visit in the emergency room today. [facility] if symptoms worsen or if there is no improvement. Call 911 if you need immediate assistance. Take Tylenol or Motrin [id number] as needed and if no contraindications are present. Increase oral hydration. A wound culture or urine culture was ordered here in the emergency room department please follow-up with primary care provider and advise them to get repeat ports from our facility. If you had any Pedro wrap/splints that were applied here, please do not remove them until you see your primary care or specialty. Cool compresses to pain three to 4 times a day. Follow up with your primary care doctor in the next one two days. Referrals: SHAUNA KEATING MD (PCP) Time of Disposition: 21:52 I have reviewed the case, and I agree with, Diagnosis and Plan MAGALY BRAVO NP Aug 07, 2025 20:51
--- NOTE | 2025-08-07 22:13 | HMCIMG ---
EXAM: XR Pelvis, 1 View. CLINICAL HISTORY: 35-year-old female with pelvic pain. COMPARISON: None provided. FINDINGS: BONES: No acute fracture or focal osseous lesion. JOINTS: No dislocation. The joint spaces are normal. SOFT TISSUES: The soft tissues are unremarkable. IMPRESSION: 1. No acute osseous abnormality. /[place]
--- NOTE | 2025-08-07 22:16 | NUR ---
ATTEMPTED TO CAP PT FROM LOBBY NO ANSWER AT THIS TIME
--- NOTE | 2025-08-07 22:41 | NUR ---
CALLED FOR PT FROM [facility]OB[facility]; NO RESPONSE; PT NOT FOUND IN LOBBY.
== END ==
LOC: EDH 20:44
DX: S30.0XXA Contusion of lower back and pelvis, initial encounter (principal); F17.200 Nicotine dependence, unspecified, uncomplicated; Z79.624 Long term (current) use of inhibitors of nucleotide synthesis; Z79.631 Long term (current) use of antimetabolite agent; Z88.0 Allergy status to penicillin; Z88.1 Allergy status to other antibiotic agents; Z88.6 Allergy status to analgesic agent; Z91.040 Latex allergy status; W18.39XA Other fall on same level, initial encounter; Y93.89 Activity, other specified; Y92.89 Other specified places as the place of occurrence of the external cause; Y99.8 Other external cause status
CPT/HCPCS: 72170; 99283